=== PATIENT | female | born 1985 | race Caucasian/White ===

== ENCOUNTER 2017-03-18 16:35 | Emergency (ER) | payer OTHER ==
[2017-03-18 16:55] VITALS: BP 127/83; PULSE 60; TEMP 97.5; BMI 23.8
--- NOTE | 2017-03-18 17:07 | PDOC ---
History of Present Illness - General Chief Complaint: Vomiting/Diarrhea Stated Complaint: THROWING UP BLOOD AND GREEN DIARRHEA X 2WEEKS Time Seen by Provider: 03/18/17 16:45 History Source: Patient - History of Present Illness Initial Comments: 03/18/17 17:03 Patient is a 31 y.o. female who presents c/o 2 week h/o green watery diarrhea and diffuse abdominal cramping as well as a 3 day h/o of orange colored vomit and dysuria. Patient also endorses shortness of breath, weakness and all over body pain. Patient denies any hematuria, chest pain, shortness of breath. NKDA Surgical: none Social: denies cigarettes, 1-2 alcoholic drinks monthly, denies recreational drugs PMD: cannot recall name, in [place] Past History - Past Medical History Allergies/Adverse Reactions: Allergies Allergy/AdvReac Type Severity Reaction Status Date / Time No Known Allergies Allergy Verified 03/18/17 16:36 Home Medications: Ambulatory Orders NK [No Known Home Medication] 03/18/17 COPD: No Other medical history: DENIES - Suicide/Smoking/Psychosocial Hx Smoking History: Never smoked Hx Alcohol Use: No Drug/Substance Use Hx: No Substance Use Type: Alcohol Review of Systems - Review of Systems Constitutional: Yes: Chills. No: Fever HEENTM: No: Blurred Vision, Double Vision Respiratory: No: Shortness of Breath Cardiac (ROS): No: Chest Pain ABD/GI: Yes: Blood Streaked Bowels, Abdominal cramping : Yes: Burning, Dysuria. No: Hematuria Psychiatric: Yes: Anxiety *Physical Exam - Vital Signs Last Vital Signs Temp Pulse Resp BP Pulse Ox 97.5 F L 60 16 127/83 100 03/18/17 16:37 03/18/17 16:37 03/18/17 16:37 03/18/17 16:37 03/18/17 16:37 - Physical Exam General Appearance: Yes: Nourished, Appropriately Dressed HEENT: positive: OLI Neck: positive: Trachea midline, Supple. negative: Lymphadenopathy (R), Lymphadenopathy (L) Respiratory/Chest: positive: Lungs Clear Cardiovascular: positive: S1, S2 Female Pelvic Exam: positive: normal external exam. negative: cervical os closed, CMT, discharge, adnexal tenderness, vaginal bleeding Gastrointestinal/Abdominal: positive: Normal Bowel Sounds, Guarding (LUQ, LLQ), Tenderness (LUQ, LLQ). 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 female who presents with a constellation of symptoms -- mostly GI (vomiting, diarrhea) and minimally (dysuria). Initial DDx is for diverticular disease vs. viral gastroenteritis vs. ovarian torsion/cysts PLAN: 1. CBC, CMP, Lipase 2. Pelvic Exam 3. HIV testing Reassess 03/18/17 17:50 Pelvic exam shows closed cervical os, normal physiologic discharge, no CMT, non- palpable adenexa. 03/18/17 18:50 CBC shows no leukocytosis making active infection less likely; CMP shows mild hypokalemia (3.4) - will check Mg and replete as necessary. CT Abdomen with PO & IV contrast pending - patient signed out to Dr. Michael *DC/Admit/Observation/Transfer Diagnosis at time of Disposition: Vomiting - Discharge Dispostion Condition at time of disposition: Stable
[2017-03-18 17:21] LABS: URINE APPEARANCE Clear; URINE BILIRUBIN Negative (NEGATIVE); URINE BLOOD Negative (NEGATIVE); URINE COLOR YELLOW; URINE GLUCOSE (UA) Negative (NEGATIVE); URINE KETONE 3+ (NEGATIVE); URINE LEUK ESTERASE Negative (NEGATIVE); URINE NITRITE Negative (NEGATIVE); URINE PROTEIN Negative (NEGATIVE); URINE UROBILINOGEN 0.2 (0.2-1.0)
[2017-03-18 17:42] LABS: ALBUMIN 3.9 g/dl (3.5-5.0); ALK PHOS 29 U/L (32-92); ANION GAP 8 (8-16); BILIRUBIN,TOTAL 0.7 mg/dl (0.2-1.0); CALCIUM 9.4 mg/dl (8.4-10.2); CO2 26 mmol/L (22-28); CREATININE 0.7 mg/dl (0.6-1.3); GLUCOSE,RANDOM 102 mg/dl (74-106); SGOT/AST 20 U/L (10-42); SGPT/ALT 17 U/L (10-40); TOT PROT 6.9 g/dl (6.4-8.3)
[2017-03-18 17:43] LABS: BASOPHIL 1.3 % (0-2.0); EOSINOPHIL 3.2 % (0-4.5); MCH 30.4 pg (25.7-33.7); MCHC 33.8 g/dl (32.0-36.0); MEAN CELL VOLUME 89.9 fl (80-96); MEAN PLT VOLUME 9.5 fl (7.5-11.1); NEUTROPHILS 65.4 % (42.8-82.8); PLATELET COUNT 298 K/MM3 (134-434); RDW 13.1 % (11.6-15.6); WHITE BLOOD COUNT 8.7 K/mm3 (4.0-10.8)
--- NOTE | 2017-03-18 18:03 | PDOC ---
Attending Attestation - Resident Resident Name: Patricia Mcallister - ED Attending Attestation I have performed the following: I have examined & evaluated the patient, The case was reviewed & discussed with the resident, I agree w/resident's findings & plan, Exceptions are as noted - HPI HPI: 03/18/17 17:10 31yo F with no significant PMH p/w 2 weeks of green stool, and 4 days history of emesis. 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 She also reports 4 days of emesis, that initially is NBNB, however at times there are red/purple streaks of blood mixed in towards the end. She also reports dysuria + urgency for 3 days without hematuria. +diffuse abd cramping intermittently prior to emesis. Denies fevers/chills. No recent travel or abx. Has not seen her PMD yet. Denies headache, cp, sob, weakness, numbness, rashes, joint pains, myalgias. - Physicial Exam PE: 03/18/17 17:13 GENERAL: Awake, alert, and fully oriented, in no acute distress HEAD: No signs of trauma EYES: PERRLA, EOMI, sclera anicteric, conjunctiva clear ENT: Auricles normal inspection, hearing grossly normal, nares patent, oropharynx clear without exudates. dry MM NECK: Normal ROM, supple, no lymphadenopathy, JVD, or masses LUNGS: Breath sounds equal, clear to auscultation bilaterally. No wheezes, and no crackles HEART: Regular rate and rhythm, normal S1 and S2, no murmurs, rubs or gallops ABDOMEN: Soft, +LUQ and LLQ ttp, normoactive bowel sounds. No guarding, no rebound. 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 Normal vaginal vault with no DC/bleeding. Os is closed. No midline or adnexal ttp, no CMT EXTREMITIES: Normal range of motion, no edema. No clubbing or cyanosis. No cords, erythema, or tenderness NEUROLOGICAL: Normal speech, cranial nerves intact, negative pronator drift, 5/ 5 strength in all 4 extremities, normal sensation to light touch in all 4 extremities, normal cerebellar exam, normal gait, normal reflexes and tone SKIN: Warm, Dry, normal turgor, no rashes or lesions noted. - Medical Decision Making 03/18/17 18:21 31yo F w/o PMH p/w 3 weeks of green stool and 4 days of emesis with some blood streaking. Blood in emesis c/w kraig molina. Vitals unremarkable. Exam with LUQ and LLQ ttp. Pelvic exam wnl. UPT negative. Given abd tenderness, will image with CT to r/o acute intrabd pathology. DDx includes but is not limited to colitis vs UA vs diverticulitis vs enteritis. Pt also requests HIV testing. -labs -UA/UPT -CTAP -HIV -IVF -reassess 03/18/17 19:01 Pt signed out to [facility] night attending for further management.
[2017-03-18 19:01] LABS: URINE MARIJUANA THC NEGATIVE ng/ml (CUTOFF=50)
[2017-03-18 19:12] LABS: HIV 1 & 2 AB NEGATIVE; HIV 1 AGp24 NEGATIVE
--- NOTE | 2017-03-18 22:13 | PDOC ---
*Physical Exam - Vital Signs Last Vital Signs Temp Pulse Resp BP Pulse Ox 97.5 F L 60 16 127/83 100 03/18/17 16:37 03/18/17 16:37 03/18/17 16:37 03/18/17 16:37 03/18/17 16:37 ED Treatment Course - LABORATORY CBC & Chemistry Diagram: 03/18/17 17:11 03/18/17 17:11 - ADDITIONAL ORDERS Additional order review: Laboratory Results 03/18/17 03/18/17 03/18/17 17:15 17:11 17:11 Sodium 134 L Potassium 3.4 L Chloride 100 Carbon Dioxide 26 Anion Gap 8 BUN 13 Creatinine 0.7 Creat Clearance w eGFR > 60 Random Glucose 102 Calcium 9.4 Magnesium Total Bilirubin 0.7 AST 20 ALT 17 Alkaline Phosphatase 29 L Total Protein 6.9 Albumin 3.9 Lipase 31 Urine Color Urine Appearance Urine pH Ur Specific Beaver Urine Protein Urine Glucose (UA) Urine Ketones Urine Blood Urine Nitrite Urine Bilirubin Urine Urobilinogen Ur Leukocyte Esterase Urine HCG, Qual Opiates Screen Negative Methadone Screen Negative Barbiturate Screen Negative Phencyclidine Screen Negative Ur Amphetamines Screen Positive MDMA (Ecstasy) Screen Negative Benzodiazepines Screen Negative Cocaine Screen Positive U Marijuana (THC) Screen Negative 03/18/17 03/18/17 17:11 17:10 Sodium Potassium Chloride Carbon Dioxide Anion Gap BUN Creatinine Creat Clearance w eGFR Random Glucose Calcium Magnesium 1.7 L Total Bilirubin AST ALT Alkaline Phosphatase Total Protein Albumin Lipase Urine Color Yellow Urine Appearance Clear Urine pH 6.0 Ur Specific [place] 1.020 Urine Protein Negative Urine Glucose (UA) Negative Urine Ketones 3+ H Urine Blood Negative Urine Nitrite Negative Urine Bilirubin Negative Urine Urobilinogen 0.2 Ur Leukocyte Esterase Negative Urine HCG, Qual Negative Opiates Screen Methadone Screen Barbiturate Screen Phencyclidine Screen Ur Amphetamines Screen MDMA (Ecstasy) Screen Benzodiazepines Screen Cocaine Screen U Marijuana (THC) Screen 03/18/17 17:11 RBC 4.48 MCV 89.9 MCHC 33.8 RDW 13.1 MPV 9.5 Neutrophils % 65.4 Lymphocytes % 24.6 Monocytes % 5.5 Eosinophils % 3.2 Basophils % 1.3 *DC/Admit/Observation/Transfer Diagnosis at time of Disposition: Vomiting Qualifiers: Vomiting type: unspecified Vomiting Intractability: non-intractable Nausea presence: with nausea Qualified Code(s): R11.2 - Nausea with vomiting, unspecified - Discharge Dispostion Disposition: HOME Condition at time of disposition: Improved Admit: No - Prescriptions Prescriptions: Ondansetron [Zofran Odt -] 4 mg SL TID PRN #10 od.tablet PRN Reason: Nausea And/Or Vomiting - Patient Instructions Printed Discharge Instructions: DI for Vomiting -- Adult, DI for Diarrhea and Traveler's Diarrhea -- Adult - Post Discharge Activity Forms/Work/School Notes: Back to Work
== END 2017-03-18 22:18 | disposition home or self-care (01) ==
LOC: FER 16:35
DX: R11.2 Nausea with vomiting, unspecified (principal)
CPT/HCPCS: 36415; 74177-TC; 80053; 80307; 81003; 83690; 83735; 84703; 85025; 87389; 99282-25